=== PATIENT | female | born 2000 | race African-American/Black ===

== ENCOUNTER 2018-03-04 11:58 | Emergency (ER) | payer SELFPAY ==
[~2018-03-04] VITALS: Ht 162.6 cm; Wt 59.0 kg
[2018-03-04 12:30] VITALS: BP 125/59
[2018-03-04] MEDS ORDERED: PROMETHAZINE 12.5 MG TABLET. PO ONE (13:00)
[2018-03-04] MEDS ORDERED: diphenhydrAMINE HCL 25 MG CAPSULE PO ONE (13:00)
[2018-03-04] MEDS ORDERED: SUMAtriptan SUCC 6 MG/0.5 ML VIAL. SQ ONE (13:00)
[2018-03-04] MEDS ORDERED: PROM25TA10 PO (13:25)
[2018-03-04] MEDS ORDERED: SUMA50TA3 PO (13:25)
--- NOTE | 2018-03-04 13:25 | PHYS DOC ---
Past Medical History Past Medical History: No Pertinent History, Migraines Past Surgical History: No Surgical History Alcohol Use: None Drug Use: Marijuana Adult General Chief Complaint Chief Complaint: HEADACHE HPI HPI Patient is a 17 year old female with history of migraine headaches who presents today complaining of 9 out of 10 frontal headache that has been going on intermittently for the last 3 weeks. Patient states the pain is usually worse when she wakes up in the morning. Patient denies any nausea vomiting. Denies any neck pain. Denies any fever. Review of Systems Review of Systems Constitutional: Denies fever or chills [] Eyes: Denies change in visual acuity, redness, or eye pain [] HENT: Denies nasal congestion or sore throat [] Respiratory: Denies cough or shortness of breath [] Cardiovascular: No additional information not addressed in HPI [] GI: Denies abdominal pain, nausea, vomiting, bloody stools or diarrhea [] : Denies dysuria or hematuria [] Musculoskeletal: Denies back pain or joint pain [] Integument: Denies rash or skin lesions [] Neurologic: Reports headache, denies focal weakness or sensory changes [] All other systems were reviewed and found to be within normal limits, except as documented in this note. Current Medications Current Medications Current Medications Medications (Trade) Dose Ordered Sig/Jayme Start Time Stop Time Status Last Admin Dose Admin Diphenhydramine HCl (Benadryl) 25 mg 1X ONCE 03/04/18 13:00 03/04/18 13:02 DC 03/04/18 13:19 25 MG Promethazine HCl (Phenergan) 12.5 mg 1X ONCE 03/04/18 13:00 03/04/18 13:02 DC 03/04/18 13:20 12.5 MG Sumatriptan Succinate (Imitrex) 6 mg 1X ONCE 03/04/18 13:00 03/04/18 13:01 DC 03/04/18 13:20 6 MG Allergies Allergies Allergies Coded Allergies Type Severity Reaction Last Updated Verified No Known Drug Allergies 03/04/18 No Physical Exam Physical Exam Constitutional: Well developed, well nourished, no acute distress, non-toxic appearance. [] HENT: Normocephalic, atraumatic, bilateral external ears normal, oropharynx moist, no oral exudates, nose normal. [] Eyes: PERRLA, EOMI, conjunctiva normal, no discharge. [] Neck: Normal range of motion, no tenderness, supple, no stridor. [] Cardiovascular:Heart rate regular rhythm, no murmur [] Lungs & Thorax: Bilateral breath sounds clear to auscultation [] Abdomen: Bowel sounds normal, soft, no tenderness, no masses, no pulsatile masses. [] Skin: Warm, dry, no erythema, no rash. [] Back: No tenderness, no CVA tenderness. [] Extremities: No tenderness, no cyanosis, no clubbing, ROM intact, no edema. [] Neurologic: Alert and oriented X 3, normal motor function, normal sensory function, no focal deficits noted. Cranial nerves II through XII intact Psychologic: Affect normal, judgement normal, mood normal. [] Current Patient Data Vital Signs Vital Signs Date Time Temp Pulse Resp B/P (MAP) Pulse Ox O2 Delivery O2 Flow Rate FiO2 03/04/18 12:30 98.3 63 125/59 (81) 100 Room Air 98.3 Lab Values Laboratory Tests Test 03/04/18 12:27 POC Urine HCG, Qualitative Hcg negative (Negative) EKG EKG [] Radiology/Procedures Radiology/Procedures [] Course & Med Decision Making Course & Med Decision Making Pertinent Labs and Imaging studies reviewed. (See chart for details) This is a 17-year-old female patient presenting to the ED today with a headache intermittently for 3 weeks. Patient's vitals are normal. Has history of migraine headaches. Headaches similar to her migraines. Given Imitrex in the ED. Discharged with the same. Follow-up with neurologist in 1-2 weeks as needed. Dragon Disclaimer Dragon Disclaimer This electronic medical record was generated, in whole or in part, using a voice recognition dictation system. Departure Departure Impression: Primary Impression: Headache, migraine Disposition: 01 HOME, SELF-CARE Condition: STABLE Referrals: NO PCP (PCP) OTILIA NEGRETE MD Follow-up in 1-2 weeks Patient Instructions: Migraine Headache, [id number] Additional Instructions: You were evaluated in the emergency room for headache. We put on medications, take them as prescribed. Follow-up with your own doctor in 1-2 weeks or the provided neurologist as needed. Scripts Promethazine Hcl (PROMETHAZINE HCL) 25 Mg Tablet 1 TAB PO PRN Q6HRS, #20 TAB Prov: KEYANA MAI NICOLAS 03/04/18 Sumatriptan Succinate (IMITREX) 50 Mg Tablet 1 TAB PO UD, #9 TAB 1 Refill Prov: KEYANA MAI NICOLAS 03/04/18 Problem Qualifiers Primary Impression: Headache, migraine Migraine type: unspecified Status migrainosus presence: without status migrainosus Intractability: not intractable Qualified Codes: G43.909 - Migraine, unspecified, not intractable, without status migrainosus KEYANA MAI NICOLAS Mar 04, 2018 13:25
== END 2018-03-04 13:45 | disposition home or self-care (01) ==
LOC: ER 11:58
DX: G43.909 Migraine, unspecified, not intractable, without status migrainosus (principal); F12.10 Cannabis abuse, uncomplicated
CPT/HCPCS: 81025; 96372; 99283; J3030; Q0163; Q0169